=== PATIENT | male | born 1995 | race Caucasian/White ===

== ENCOUNTER 2020-05-18 06:58 | Outpatient (NON) | payer OTHER, SELFPAY ==
[2020-05-18 18:22] LABS: SARS-CoV-2 RNA PCR Positive
== END 2020-05-18 06:59 ==
PROVIDERS: PCP Family Medicine; Visit Provider Family Medicine
DX: U07.1 COVID-19 (principal)
CPT/HCPCS: 87635; C9803; U0003

== ENCOUNTER 2020-09-23 10:48 | Outpatient (CLI) | payer OTHER, SELFPAY ==
--- NOTE | ~2020-09-23 | XR_ITS ---
EXAMINATION: XR knee LT min 4V DATE: 09/23/2020 11:13 INDICATION: Left knee injury and pain. TECHNIQUE: 4 views of left knee were obtained. COMPARISON: None. FINDINGS: Bone alignment is normal. No fracture. Joint spaces are well maintained. There is no knee j oint effusion. IMPRESSION: 1. Normal left knee. Reviewed, dictated and finalized at location A. IMPRESSION: 1. Normal left knee.
== END 2020-09-23 10:49 | disposition home or self-care (01) ==
PROVIDERS: PCP Family Medicine; Visit Provider Nurse Practitioner
DX: M25.562 Pain in left knee (principal)
CPT/HCPCS: 73564

== ENCOUNTER 2023-12-13 21:02 | Emergency (ER) | payer OTHER, SELFPAY ==
[2023-12-13 21:08] VITALS: BP 117/72; PULSE 111; RESP 23; TEMP 36.6; O2SAT 100
[2023-12-13 21:41] VITALS: BP 136/80; PULSE 92; RESP 16; O2SAT 100
--- NOTE | 2023-12-13 22:19 | ED.WOUNDLAC ---
HPI - Wound/Laceration General Chief Complaint: Wound/Laceration Stated Complaint: lip laceration Time Seen by Provider: 12/13/23 21:52 Source: patient Mode of arrival: ambulatory Limitations: no limitations History of Present Illness HPI narrative: This is a 28 year old male that presents to the ER for laceration to the upper lip sustained just prior to arrival. Reports he was putting his dog to sleep. He went in to give the dog a hug and the dog came up and bit him. He is not up to date on tetanus. Dog is up to date on it's vaccinations. Denies fevers. Related Data Allergies Allergy/AdvReac Type Severity Reaction Status Date / Time amoxicillin Allergy Mild Hives Verified 12/13/23 21:22 Penicillins Allergy Mild Hives Verified 12/13/23 21:22 Review of Systems Review of Systems: CONSTITUTIONAL: Denies fever SKIN: Reports laceration All systems reviewed & are unremarkable except as noted in HPI and below PMFSH Past Medical History Medical History (Updated 12/14/23 @ 00:29 by Criss Lara PA-C) No active medical problems Family History Family History (Updated 01/13/16 @ 23:21 by DOCTOR UNKNOWN) Mother Patient's mother is in good health Sibling Patient's sister is in good health Patient's brother is in good health Father Family history of renal failure Social History Social History Smoking status: Never smoker Second hand tobacco smoke exposure: No Alcohol intake: current Exam Narrative: GENERAL: Well-appearing, well-nourished, and in no acute distress. HEAD: Normocephalic, atraumatic. EYES: EOMI. ENT: Nares clear, no rhinorrhea or epistaxis. Mucous membranes moist. Oropharynx without tonsillar hypertrophy exudate or other lesions. 3cm linear laceration into subcutaneous tissue to the bottom of the upper lip through the vermilion border and to the base of the left nare EXTREMITIES: Normal range of motion. No edema. SKIN: Warm, dry, no rash. NEURO: No focal deficits. Alert and oriented x3. PSYCH: Normal mood and affect Course Course Emergency Course: Patient and family offered transfer for management by plastics. He wishes to be sutured here Vital Signs Vital signs: Vital Signs Temperature 97.8 F 12/13/23 21:08 Pulse Rate 111 H 12/13/23 21:08 Respiratory Rate 23 H 06/28/24 21:08 Blood Pressure 117/72 12/13/23 21:08 Pulse Oximetry 100 12/13/23 21:08 Oxygen Delivery Room Air 12/13/23 21:08 Temperature 97.8 F 12/13/23 21:08 Pulse Rate 79 12/13/23 23:37 Respiratory Rate 15 12/13/23 23:37 Blood Pressure 123/88 12/13/23 23:37 Pulse Oximetry 98 12/13/23 23:37 Oxygen Delivery Room Air 12/13/23 21:08 Procedures Laceration Laceration 1: Date: 12/14/23 Time: 00:26 Site: lip Side (If applicable): left Size (cm): 3 Description: linear Depth: simple, single layer Local Anesthetic: lidocaine 1% Amount of anesthesia used (mL): 2 Pre-repair: irrigated ====== Skin Level ====== Skin layer closed with: nylon Size (cm): 5-0 Number of sutures: 6 Technique: simple, interrupted ====== Subcutaneous Layer ====== Subcutaneous layer closed with: vicryl Size: 4-0 Number of sutures: 1 Technique: simple, interrupted ====== Muscle Layer ====== ====== Tendon Layer ====== MDM - Wound/Laceration MDM Narrative Medical decision making narrative: Patient presents to the emergency department for a laceration to the upper lip sustained via dog bite. Patient updated on tetanus. His dog is up to date on it's vaccinations. Wound was irrigated and closed with sutures. He was educated on further wound care. He will be given follow up with plastic surgery. He was given warnings to return to the ER Differential Diagnosis Differential diagnosis: Likely laceration and other (dog bite) Critical Care Time [facility] [place]
[2023-12-13] MEDS: ONDANSETRON INJ 4 MG/2 ML VIAL IV PUSH (22:26)
[2023-12-13] MEDS: MORPHINE SULFATE (*CRX) 4 MG/ML INJ IV PUSH (22:27)
[2023-12-13] MEDS: TETANUS,DIPHTHERIA,AC PERTUSSIS ADULT (0.5 ML) BOOSTRIX IM (22:28)
[2023-12-13 23:37] VITALS: BP 123/88; PULSE 79; RESP 15; O2SAT 98
[2023-12-14] MEDS: metroNIDAZOLE 500 MG TABLET PO (00:37)
[2023-12-14] MEDS: DOXYCYCLINE HYCLATE 100 MG TABLET PO (00:37)
== END 2023-12-14 00:43 | disposition home or self-care (01) ==
PROVIDERS: Emergency Provider Physician Assistant; PCP Family Medicine
DX: S01.551A Open bite of lip, initial encounter (principal); W54.0XXA Bitten by dog, initial encounter; Z23 Encounter for immunization
CPT/HCPCS: 12051; 90471; 90715; 96374; 96375; 99284; A4565; A9270; J2270; J2405